=== PATIENT | male | born 1950 | race Caucasian/White ===

== ENCOUNTER 2017-01-24 08:44 | Inpatient (IN) | payer MEDICARE, BC ==
[~2017-01-24] VITALS: Ht 177.8 cm; Wt 72.1 kg
--- NOTE | ~2017-01-24 | WND ---
ADMIT: 01/24/2017 RM/LOC: 521 [facility] MR#: [id number] [address] [address] LARRY LOGAN [facility] [place] [address] Wound Care Clinic SEX: M AGE: 66 : 1950 DATE OF VISIT: 01/25/2017 TIME OF VISIT: 90 minutes in ostomy education. REASON FOR REQUEST: Ostomy education and evaluation. Consult came from Dr. Giraldo. HISTORY OF PRESENT ILLNESS: Larry is a 66-year-old male, who was diagnosed in August of 2016 with rectal cancer. He underwent a colonoscopy at that point, found a rectal mass of 5 cm. Biopsies determined that it was a moderately differentiated adenocarcinoma. It is a T3 lesion. He was not found to have any other metastatic disease. He was treated with Xeloda and radiation. His last radiation dose was December 02, 2016. He was admitted to [facility] on January 24, 2017 and had a laparoscopic low anterior resection for rectal cancer with a loop diverting ileostomy. He is 1 day post surgical. The nurses have reported quite a bit of confusion off and on after the surgery. Ira Sarabia APRN/ adan JOB #: [id number] CC: Nish Giraldo MD, Attending Physician Ramone Marcelino MD, Family Physician
--- NOTE | ~2017-01-24 | WND ---
ADMIT: 01/24/2017 RM/LOC: 521 [facility] MR#: [id number] 2620 [facility] [address] [place], [place] [address] KRUPA LOGAN [address] [place] [id number] Wound Care Clinic SEX: M AGE: 66 : 1950 DATE OF VISIT: 01/26/2017 TIME IN: 10:30 TIME OUT: 11:10 REASON FOR VISIT: Continuing ostomy education and evaluation. A request for wound care from Dr. Giraldo. HISTORY OF PRESENT ILLNESS: This is a 66-year-old male, who lives in [place], [place]. In August of 2016, he was noted to have rectal bleeding and was diagnosed with rectal cancer. He underwent 7 weeks of chemotherapy and radiation in October of 2016 through December 02, 2016. He is followed by Dr. Parrish from Oncology. He also was seen by Dr. Giraldo from Surgery. He was admitted to [facility] on 01/24/2017, and he had a laparoscopic, low-anterior resection for rectal cancer with a loop diverting ileostomy. He was actually seen by ALESSANDRA Leo certified wound ostomy continence nurse yesterday and initial teaching was done regarding ostomy cares. He also had his pouching system changed yesterday. REVIEW OF SYSTEMS: He is examined in his hospital room where he is awake and alert. His is at the bedside. He denies any recent fever or chills. No nausea or vomiting. No cough, cold, or chest pain. He states he has minimal discomfort in his abdomen. He is planning on going home today. He states there are arranging for Home Health to assist with cares once he is home. PHYSICAL EXAMINATION: VITAL SIGNS: Temperature 99, pulse 74, respirations 18, blood pressure 115/73, and O2 sats on room air is 97%. Focused exam to his abdomen shows that it is slightly distended. He does have his laparoscopic port hole incisions are intact with luiz. No surrounding erythema or induration. On his right lower quadrant is his diverting loop ileostomy. The pouching system was changed yesterday, so this was not removed. He does have an elevated stoma that is slightly dusky in color. He does have a bharath in place. There is liquid fecal effluent in the pouching system. ASSESSMENT: Functioning loop diverting ileostomy status post laparoscopic low anterior resection for rectal cancer. TREATMENT PLAN: The entire visit of 40 minutes was spent in ostomy education. The ostomy booklet was reviewed. I was able to answer questions they had regarding the functioning of the ileostomy as well as how to care for the ileostomy. Also, requested that ostomy supplies be sent to [employer] [facility] in [place], [place]. The phone #[phone]. . The ostomy supplies request was faxed to [facility]. Requested Can 70 mm 2-piece wafer #[id number] with pouch #[id number] with filter request 20 per month. The pouch should be changed every 3 to 4 days and p.r.n. leakage. Requested Can no Sting wipes #7917, 50 wipes per box, 1 box per wipe, to ADMIT: 01/24/2017 RM/LOC: 521 [facility] MR#: [id number] [address] [place] [phone] KRUPA LOGAN [address] [place] [address] Wound Care Clinic SEX: M AGE: 66 : 1950 use peristomal area to protect the skin with pouch changes. Also requested a Wyatt universal remover wipes 7760, 50 wipes per box to use to remove the wafers if needed every 3 to 4 days and p.r.n. leakage. Also, requested that home health care notify [facility] with any questions or concerns regarding the stoma. The patient actually has a followup appointment scheduled with Dr. Giraldo in [place] on February 06, 2017. He is encouraged to contact [facility] with any questions or concerns. Extra supplies were sent with the family. The ostomy packet was also given to the patient. Thank you for this referral and Wound will continue to follow in the future as needed. Corine Schilling APRN/ adan JOB #: [id number] CC: Nish Giraldo, Attending Physician Ramone Marcelino, Family Physician
[2017-01-27] MEDS ORDERED: FLOMAX DPS0.4 MG PO (17:15)
[2017-01-27] MEDS ORDERED: POTASSIUM99 M1 PO (17:15)
[2017-01-27] MEDS ORDERED: TOPROL XL DPS25 MG PO (17:15)
[2017-01-27] MEDS ORDERED: ZESTRIL DPS10 MG PO (17:15)
[2017-01-27] MEDS ORDERED: NORCO 5-325 TA1 EACH PO (17:16)
[2017-01-27] MEDS ORDERED: ONE DAILY FOR1 EAC1 PO (17:16)
--- NOTE | 2017-01-31 09:07 | NUR ---
Phone call from [facility]. The bharath came out of the patient's stoma on 01-29-17. [facility] has been having difficulty keeping an appliance in place. Patient has peristomal irritation that is bright red and raw. Liquidy stools noted. Recommended to use water only around stoma. Recommended the crusting technique that was expalnined to the [facility] nurse with stoma powder and no sting spary or wipes until the white powder is not visiable. Recommended 2 fiber gummies TID to help thicken stool if okay with Dr. Giraldo. Patient sees Dr. Giraldo in [place] on 02-06-17. Also recommended a follow up here in [facility] for fitting for an extended wear cut to fit wafer. [facility] nurse said the stoma is still slightly dusky in appearance. Encourage to call with any questions or concerns.
--- NOTE | 2017-02-18 12:20 | DS ---
ADMIT: 01/24/2017 RM/LOC: 521 [facility] MR#: [id number] 2620 [facility] [address] [place] [phone] KRUPA LOGAN [address] [place] [address] Discharge Summary SEX: M AGE: 66 : 1950 ADMISSION DATE: 01/24/2017 DISCHARGE DATE: 01/26/2017 ADMITTING DIAGNOSIS: Rectal mass. DISMISSAL DIAGNOSES: 1. Adenocarcinoma of the rectum. 2. 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 Fourteen lymph nodes noted without metastatic disease. PROCEDURES: Laparoscopic low anterior resection with loop ileostomy. HOSPITAL COURSE: The patient was an inpatient admit with routine med/surg orders. After surgery, the patient transferred to the floor without any complications. He was given a morphine ALTERATION TAILOR for pain control. Overall, the patient recovered well while in the hospital. A Moses that was placed intraoperatively was pulled the next day. His pain was controlled, and so he was weaned off his ALTERATION TAILOR and was tolerating oral pain medications. Wound Care was consulted to help with ostomy cares. The patient continued to recover well and was able to discharge home on 01/26/2017. At this time, his vitals normalized. He was tolerating an advanced diet and had good output out of his ostomy. The patient was dismissed to home with Home Health Care at this time. DISCHARGE INSTRUCTIONS: 1. Dressing off in 7 days. 2. No lifting greater than 20 pounds for 4 weeks. 3. No driving while taking Lortab. 4. Avoid carbonated beverages. 5. Follow up with Dr. Giraldo in [place] on 02/13/2017. 6. Schedule nurse visit in [place] on 02/06 for staple removal. DISCHARGE MEDICATION LIST: 1. Metoprolol 25 mg daily. 2. Tamsulosin 0.4 mg daily. 3. Lisinopril 10 mg daily. 4. Potassium 99 mg [id number]-dltshvr daily. 5. One-A-Day men's multivitamin daily. 6. Hydrocodone/acetaminophen 5/325, 1-2 tabs q.4-6 hours p.r.n. KEVIN Marshall / Nish Giraldo MD / jamarcus JOB #: [id number] CC: Nish Giraldo MD, Attending Physician Ramone Marcelino MD, Family Physician
[2017-03-24] MEDS ORDERED: ZESTRIL DPS10 MG PO (18:15)
[2017-03-24] MEDS ORDERED: TOPROL XL DPS25 MG PO (18:15)
[2017-03-24] MEDS ORDERED: FLOMAX DPS0.4 MG PO (18:15)
[2017-03-24] MEDS ORDERED: TYLENOL DPS325 MG PO (18:16)
[2017-03-24] MEDS ORDERED: MAPAP PM (TYLEN1 TAB PO (18:16)
[2017-03-24] MEDS ORDERED: MICRO-K DPS10 MEQ PO (18:16)
[2017-03-24] MEDS ORDERED: ONE DAILY FOR1 EAC1 PO (18:16)
--- NOTE | 2017-03-28 13:24 | OR ---
ADMIT: 01/24/2017 RM/LOC: 521 [facility] MR#: [id number] [address] [address] KRUPA LOGAN [address] [place] [id number] Operative/Delivery Room Report SEX: M AGE: 66 : 1950 CORRECTED: 02/21/2017 1501 [facility] SURGERY DATE: 01/24/2017 SURGEON: Nish Giraldo MD DIAL BRUSHER: Dario Orantes MD PREOPERATIVE DIAGNOSIS: Rectal cancer status post preoperative treatment with chemo and radiation. Plan for a laparoscopic resection with diverting loop ileostomy. POSTOPERATIVE DIAGNOSIS: Rectal cancer status post preoperative treatment with chemo and radiation. Plan for a laparoscopic resection with diverting loop ileostomy. FINAL PATHOLOGY: Pending. PROCEDURES: 1. Flexible sigmoidoscopy with tattooing of this area and lesion in the rectum. 2. Laparoscopic low-anterior resection. 3. Diverting loop ileostomy. SPECIMEN: Rectum to Pathology. ESTIMATED BLOOD LOSS: 100 mL. INDICATION FOR PROCEDURE: Please see H and P. After the risks, benefits, possible complications, and alternatives have been explained, and informed consent had been obtained, the patient was taken back to the operating room, underwent general endotracheal tube anesthesia placed in [facility]. Actually the patient was already prepped and draped. Dr. Orantes came in while I was getting started with the laparoscopic portion and I had already placed a 5-mm midline port after gaining access and insufflating the abdomen with CO2. Two right-sided ports, A 12 mm lower one and a 5 mm one above this. So we did not get too much air. I went and held, kind of obstructed, held the sigmoid colon to prevent too much air from going in. Dr. Orantes then did a flex sig and tattooed this area circumferentially below where we felt the lesion was looking at it and it had responded quite well to chemotherapy. So that way it had marked, it had not been previously tattooed. Once you got it adequately tattooed, doing a flexible sigmoidoscopy and evaluating it, he went, scrubbed in and assisted. We put another 5 mm port. I chose an area proximally, scored the mesentery slowly, started dissecting down into the pelvis doing a nice complete mesial rectal excision of this area, got down to where we identified blue dye. Actually it was a little more diffuse than I wanted because it kind obscured what was the fat and what was actually bowel wall and stuff made a little difficult but kept working laterally, anteriorly, ADMIT: 01/24/2017 RM/LOC: 521 [facility] MR#: [id number] [address] [address] [place] [address] Operative/Delivery Room Report SEX: M AGE: 66 : 1950 and posteriorly freeing everything up using the Harmonic Scalpel. Once we felt we had everything adequately freed up, we were down below this lesion. Used a UMAIR stapler and because of the thickness of the bowel and toughness of getting it down there, I came kind of wjyvawyk-qe-kwoeodfxk and took several firings, but got the rectum divided there. Then made an incision and freed up some of the mesentery. Came across some of the mesenteric vessels coming up, but felt we left a good adequate blood supply. Brought the main incision then left lower quadrant, put CO2 and the camera on hold. Wound protector was placed after we had a large enough incision to bring this specimen out and we brought it out through a left lower quadrant incision site. At this point then, ended up choosing an area proximally that I felt gave us good adequate margin. Clamped, divided, and ligated little bit of the mesentery coming up. Placed a purse-string suture across here and the specimen was removed sharply with a knife. Chose a 29 mm stapled stapler anvil that was placed in the proximal bowel and tied, cleaned off a little bit of the proximal end, it was then returned to the abdominal cavity. Changed gloves, closed the left lower quadrant incision with a couple of [address] Orantes went below. We created an end-to-end stapled anastomosis using the 29 mm stapler which seemed to come together nicely, did not appear to be under any tension with good and adequate blood supply. We air tested it and there were no signs of any air leak. However, because of his radiation treatments, did not feel comfortable obviously just leaving that without diverting him. So chose a piece of the terminal ileum, got with a grasper, brought up, and chose an area in the right lower quadrant. I made an incision, got a hold of it with grasper and brought the terminal ileum out with the proximal being in superior and then inferior was distal. Used a bridge across the ileostomy there. Then opened that using electrocautery and matured, and tried to do a brook with more of the proximal end where all the contents will be coming out with some 3- 0 Vicryl sutures but more distal portion of the loop was stitched as well. Closed the other incisions after all the ports removed with luiz. He tolerated the procedure well. He was extubated and taken to recovery room in stable and satisfactory condition. Nish Giraldo MD/ adan JOB #: [id number] CC: Nish Giraldo MD, Attending Physician Ramone Marcelino MD, Family Physician CORRECTED: 02/21/2017 1501 [facility]
== END 2017-01-26 13:30 | disposition home health service (06) | DRG 331 ==
LOC: WOR 08:44 → 5MS 08:44
PROVIDERS: ADMIT Surgery
PROC: 0DJD8ZZ Inspection of Lower Intestinal Tract, Via Natural or Artificial Opening Endoscopic (ICD-10-PCS; principal; 2017-01-24)
PROC: 0D1B4Z4 Bypass Ileum to Cutaneous, Percutaneous Endoscopic Approach (ICD-10-PCS; principal; 2017-01-24)
PROC: 0DBP4ZZ Excision of Rectum, Percutaneous Endoscopic Approach (ICD-10-PCS; principal; 2017-01-24)
DX: C20 Malignant neoplasm of rectum (principal); I10 Essential (primary) hypertension; K21.9 Gastro-esophageal reflux disease without esophagitis; D12.8 Benign neoplasm of rectum

== ENCOUNTER 2017-03-21 05:42 | Inpatient (IN) | payer MEDICARE, BC ==
[~2017-03-21] VITALS: Ht 177.8 cm; Wt 72.0 kg
[~2017-03-21 05:42] MED LIST: FLOMAX DPS0.4 MG PO; NORCO 5-325 TA1 EACH PO; ONE DAILY FOR1 EAC1 PO; POTASSIUM99 M1 PO; TOPROL XL DPS25 MG PO; ZESTRIL DPS10 MG PO
[2017-03-24] MEDS ORDERED: ZESTRIL DPS10 MG PO (18:15)
[2017-03-24] MEDS ORDERED: TOPROL XL DPS25 MG PO (18:15)
[2017-03-24] MEDS ORDERED: FLOMAX DPS0.4 MG PO (18:15)
[2017-03-24] MEDS ORDERED: MICRO-K DPS10 MEQ PO (18:16)
[2017-03-24] MEDS ORDERED: MAPAP PM (TYLEN1 TAB PO (18:16)
[2017-03-24] MEDS ORDERED: TYLENOL DPS325 MG PO (18:16)
[2017-03-24] MEDS ORDERED: ONE DAILY FOR1 EAC1 PO (18:16)
--- NOTE | 2017-03-28 13:27 | OR ---
ADMIT: 03/21/2017 RM/LOC: 507 [facility] MR#: [id number] 2620 [facility] [address] [place] [phone] KRUPA LOGAN [address] [place] [address] Operative/Delivery Room Report SEX: M AGE: 66 : 1950 SURGERY DATE: 03/21/2017 SURGEON: Nish Giraldo MD PREOPERATIVE DIAGNOSIS: History of rectal cancer with preoperative radiation treatment and diverting loop ileostomy status post resection, need for takedown of loop ileostomy. POSTOPERATIVE DIAGNOSIS: History of rectal cancer with preoperative radiation treatment and diverting loop ileostomy status post resection, need for takedown of loop ileostomy. PROCEDURE: Takedown of the right lower quadrant loop ileostomy. INTERNAL AFFAIRS COMMANDER: Sid Jones MD who was necessary for adequate exposure, retraction, and completion of this case. ANESTHESIA: General endotracheal tube anesthesia. ESTIMATED BLOOD LOSS: 20 mL or less. INDICATION FOR PROCEDURE: Please see H and P. After the risks, benefits, possible complications, and the alternatives have been explained, and informed consent had been obtained, the patient was taken back to the operating room, underwent general anesthesia, and the surgical field was prepped and draped in a sterile manner. I used a knife, slowly freed up the loop ileostomy in the right lower quadrant from the skin and subcutaneous tissue. Still a little bit of kind of inflammatory as far as being really adherent. Finally with just slow and kind of persistent dissection, got into the correct space of the bowel and intraabdominal. Could tell where the fascia and peritoneum were and then circumferentially freed things up. Once it was all freed up, just sweeping a finger into the abdomen, there was nothing else there stuck. Went ahead and kind of cleaned the ends up and basically put the bowel back together with a 75 stapler, [id number]-[id number] anastomosis of the distal ileum. Stapled off the end of it as well. Reinforced it with some interrupted silk sutures. Changed gloves, returned the completed anastomosis to the abdominal cavity and then closed with a running #1 PDS. Laurita for skin. He tolerated it well, was extubated and taken to recovery room in stable and satisfactory condition. Nish Giraldo MD/ adan JOB #: [id number] CC: Nish Giraldo, Attending Physician Raomne Marcelino, Family Physician
--- NOTE | 2017-04-19 16:19 | DS ---
ADMIT: 03/21/2017 RM/LOC: 507 [facility] MR#: [id number] 2620 [facility] [address] [place] [phone] KRUPA LOGAN [address] [place] [address] Discharge Summary SEX: M AGE: 66 : 1950 ADMISSION DATE: 03/21/2017 DISCHARGE DATE: 03/23/2017 ADMITTING DIAGNOSIS: History of rectal cancer with preoperative radiation treatment and diverting loop ileostomy status post resection, need for takedown of loop ileostomy. DISMISSAL DIAGNOSES: 1. History of rectal cancer with preoperative radiation treatment and diverting loop ileostomy status post resection. 2. Hypertension. PROCEDURES: Takedown of right lower quadrant loop ileostomy. HOSPITAL COURSE: Patient is an inpatient admit with routine med surg orders. After surgery, the patient transferred to the floor without any complications. He was started on a morphine CLINICAL GENETICIST for pain control and liquid diet. Overall, the patient recovered well while in the hospital. His morphine CLINICAL GENETICIST was discontinued, and he was given morphine IV push. His pain was controlled so he was switched to oral pain medications to which he tolerated. Lab work remained normal, and his vitals remained stable. He tolerated advanced diet and had normal return of his bowel function. The patient continued to recover well and was able to discharge to home on 03/23/2017. DISCHARGE INSTRUCTIONS: 1. Continue drinking plenty of fluids. 2. Resume a soft diet but advance as tolerated. 3. Follow up with Dr. Giraldo on 04/03. DISCHARGE MEDICATION LIST: 1. Metoprolol succinate 25 mg daily. 2. Tamsulosin 0.4 mg daily. 3. Lisinopril 10 mg daily. 4. Potassium 99 mg over the counter daily. 5. One a Day Men's Multivitamin daily. 6. Tylenol 650 mg q.4 p.r.n. 7. Tylenol PM 325/25 mg 1 tab at bedtime as needed. KEVIN Marshall / Nish Giraldo MD / jamarcus JOB #: [id number] CC: Nish Giraldo MD, Attending Physician Ramone Marcelino MD, Family Physician
== END 2017-03-23 16:30 | disposition home or self-care (01) | DRG 330 ==
LOC: WOR 05:42 → 5MS 05:42
PROVIDERS: ADMIT Surgery
PROC: 0DBB0ZZ Excision of Ileum, Open Approach (ICD-10-PCS; principal; 2017-03-21)
DX: Z43.2 Encounter for attention to ileostomy (principal); C20 Malignant neoplasm of rectum; I10 Essential (primary) hypertension